=== PATIENT | female | born 1995 | race Caucasian/White ===

== ENCOUNTER 2022-04-24 15:21 | Emergency (ER) | payer OTHER ==
[~2022-04-24] VITALS: Ht 165.1 cm; Wt 77.1 kg
[2022-04-24 15:33] VITALS: BP_SYST 111
--- NOTE | 2022-04-24 15:33 | NUR ---
PT TRIAGED AND PLACED IN ED WAITING ROOM FOR AVAIABLE BED, MD AWARE OF MSE NEEDS
--- NOTE | 2022-04-24 16:00 | NUR ---
PATIENT PLACED IN ER HALLWAY FOR EVALUATION.
--- NOTE | 2022-04-24 16:10 | NUR ---
PATIENT BROUGTH IN COMPLAINING OF MILD INTERMITTENT NON RADIATING CHEST PAIN WITH PAIN ON INSPIRATION AND EXPIRATION. PATIENT ALSO COMPLAINS OF EPIGASTRIC PAIN WITH NAUSEA, VOMITING AND CHILLS SINCE YESTERDAY. PAIN 03/08. NO OTHER COMPLAINTS/INJURIES PER PATIENT OR NOTED.
--- NOTE | 2022-04-24 16:16 | NUR ---
DR. DAVIES AT BEDSIDE EVALUATING AT BEDSIDE.
[2022-04-24] MEDS ORDERED: MAG HYDROX/AL HYDROX/SIMETH 30 ML, DICYCLOMINE HCL 20 MG, LIDOCAINE VISCOUS 2% 15ML (PO... PO ONE ×3 (16:30)
[2022-04-24 16:57] LABS: BASOPHILS % (AUTO) 0.2 % (0.0-2.0); EOSINOPHILS % (AUTO) 0.1 % (0.0-4.0); HEMATOCRIT 33.8 % (36-48); HEMOGLOBIN 11.5 g/dL (12.0-16.0); LYMPHOCYTES # (AUTO) 1.5 K/uL (1.0-5.5); LYMPHOCYTES % (AUTO) 31.2 % (20.5-51.5); MEAN CORPUSCULAR HEMOGLOBIN 27 pg (27-31); MEAN CORPUSCULAR HGB CONC 34 % (32-36); MEAN CORPUSCULAR VOLUME 79 fL (79.0-98.0); MONOCYTES # (AUTO) 0.4 K/uL (0.0-1.0); MONOCYTES % (AUTO) 9.2 % (1.7-9.3); NEUTROPHILS # (AUTO) 2.9 K/uL (1.8-7.7); NEUTROPHILS % (AUTO) 59.3 % (40.0-70.0); PLATELET COUNT (AUTO) 218 K/uL (130-430); RED BLOOD CELL COUNT(AUTO) 4.26 MIL/uL (4.2-6.2); RED CELL DISTRIBUTION WIDTH 14.1 % (9.0-15.0); WHITE BLOOD COUNT (AUTO) 4.9 K/uL (4.8-10.8)
[2022-04-24 17:02] LABS: CALCIUM 8.3 mg/dL (8.4-11.0); CREATININE 0.81 mg/dL (0.55-1.30); POTASSIUM 3.2 mmol/L (3.5-5.1)
[2022-04-24 17:07] LABS: ALBUMIN 3.4 g/dL (3.4-4.8); TOTAL BILIRUBIN 0.3 mg/dL (0.0-1.0)
--- NOTE | 2022-04-24 17:33 | NUR ---
URINE HCG NEGATIVE
[2022-04-24] MEDS ORDERED: MAG-AL HYDROX/SIMETH 30 ML UDC ONE (17:35)
[2022-04-24] MEDS ORDERED: DICYCLOMINE HCL 10 MG/5 ML SOLUTION ONE (17:35)
[2022-04-24] MEDS ORDERED: IBUP-1969 PO (17:50)
[2022-04-24] MEDS ORDERED: OMEP40CA20 PO (17:51)
[2022-04-24 18:39] VITALS: BP_SYST 111
--- NOTE | 2022-04-24 18:40 | NUR ---
Patient given written and verbal discharge instructions and verbalizes understanding. ER MD discussed with patient the results and treatment provided. Patient in stable condition. ID arm band removed. Rx of IBUPROFEN AND OMEPRAZOLE given. Patient educated on pain management and to follow up with PMD. Pain Scale /10. Opportunity for questions provided and answered. Medication side effect fact sheet provided.
== END 2022-04-24 18:39 | disposition home or self-care (01) ==
LOC: SED 15:21
DX: K29.70 Gastritis, unspecified, without bleeding (principal); M94.0 Chondrocostal junction syndrome [Tietze]
CPT/HCPCS: 36415; 71045; 80053; 81025; 83690; 85025; 93005; 99285